=== PATIENT | female | born 1970 | race Asian ===

== ENCOUNTER 2022-11-02 13:47 | Emergency (ER) | payer OTHER, BC ==
[~2022-11-02] VITALS: Ht 149.9 cm; Wt 49.9 kg
[2022-11-02 14:00] VITALS: BP 130/75; PULSE 88; RESP 18; TEMP 97.9; O2SAT 99
[2022-11-02] MEDS ORDERED: IBUPROFEN 600 MG TAB PO ONE (14:35)
[2022-11-02] MEDS ORDERED: IBUP-2213 PO (15:58)
[2022-11-02] MEDS ORDERED: CYCL-711 PO (15:58)
--- NOTE | 2022-11-02 16:12 | NUR ---
Patient discharged with v/s stable. Written and verbal after care instructions given and explained. Patient alert, oriented and verbalized understanding of instructions. Ambulatory with steady gait. All questions addressed prior to discharge. ID band removed. Patient advised to follow up with PMD. Rx of flexeril, motrin given. Patient educated on indication of medication including possible reaction and side effects. Opportunity to ask questions provided and answered.
== END 2022-11-02 16:17 | disposition home or self-care (01) ==
LOC: MED 13:47
DX: S29.011A Strain of muscle and tendon of front wall of thorax, initial encounter (principal); S80.11XA Contusion of right lower leg, initial encounter; S60.211A Contusion of right wrist, initial encounter; M79.18 Myalgia, other site; R03.0 Elevated blood-pressure reading, without diagnosis of hypertension; Z79.899 Other long term (current) drug therapy; Z79.1 Long term (current) use of non-steroidal anti-inflammatories (NSAID); V89.2XXA Person injured in unspecified motor-vehicle accident, traffic, initial encounter; Y93.89 Activity, other specified; Y92.410 Unspecified street and highway as the place of occurrence of the external cause; Y99.8 Other external cause status
CPT/HCPCS: 71045; 93005; 99283